=== PATIENT | male | born 1990 | race Caucasian/White ===

== ENCOUNTER 2019-10-06 22:14 | Inpatient (IN) | payer MEDICARE, MEDICAID, SELFPAY ==
[2019-10-06 22:23] VITALS: BP 154/80; PULSE 77; RESP 16; TEMP 36.7; O2SAT 98; BMI 32.5
--- NOTE | 2019-10-06 22:51 | ED_ITS ---
Entered by Shantal Rosales, acting as scribe for Peg Sutherland Oct 06, 2019 22:14 HPI - Anxiety General: Chief Complaint: Anxiety Stated Complaint: STRESSED Time Seen by Provider: 10/06/19 22:49 Source: patient and EMS Mode of arrival: EMS History of Present Illness: HPI narrative: 29 y/o male presents to the ED with complaint of anxiety and stress. Pt states he has become increasingly more uns ettled over the past 24 hours. Pt states he is suicidal but does not have a plan, at this time. Pt is willing to see the MD complaint: anxiety and other Associated symptoms: Deny chest pain, chills, confusion, diaphoresis, fever(s), headache(s), malaise, nausea, palpitations, syncope or vomiting Review of Systems General: Reports: other (negative unless marked) Const: Denies: fever, chills, body aches, fatigue, malaise or diaphoresis Eyes: Denies: change in vision or blurry vision ENMT: Denies: throat pain, painful swallowing, hoarseness, ear pain, ear discharge, Change in hearing or nasal discharge Card: Denies: chest pain, palpitations, irregular heart rhythm, syncope, pre- syncope, shortness of breath on exertion or shortness of breath when lying down Resp: Denies: shortness of breath, productive cough, non-productive cough, wheezing, coughing up blood or chest congestion GI: Denies: abdominal pain, nausea, vomiting, vomiting blood, coffee grounds in vomit, diarrhea, constipation, cramping, blood in stool or black tarry stool : Denies: flank pain, difficulty urinating, painful urination, urinary frequency, urinary urgency, decreased urine ouput, urinary incontinence or blood in urine Musc: Denies: neck pain, back pain, extremity pain, extremity swelling, joint pain, joint swelling, joint warmth or joint stiffness Skin/Breast: Denies: rash, skin tenderness or yellow skin Neuro: Denies: headache, numbness in extremities, weakness in extremities, changes in sensation, lack of coordination, difficulty walking, dizziness, vertigo or confusion Endo: Denies: excessive thirst, tired all the time, cold intolerance, excessive sweating, flushing or hot flashes Sam/Lymph: Denies: easy bruising, easy bleeding, petechiae or enlarged lymph nodes All/Imm: Denies: hives, throat swelling, tongue swelling, facial swelling or acute wheezing PFSH ED PFSH: Social History Smoking and tobacco status: never smoked Physical Exam Const: COMMON NORMALS: no apparent distress, oriented x3, no limitations, healthy appearing and well nourished EXAM LIMITATIONS: no altered mental status GENERAL APPEARANCE: cooperative, well kempt and well developed ORIENTATION/CONSCIOUSNESS: Yes awake HENMT: COMMON NORMALS: normocephalic, head/scalp atraumatic, hearing grossly normal bilaterally, external ears normal, EAC's normal, external nose normal and moist oral mucous membranes HEAD & SCALP: normal to inspection, normocephalic and atraumatic FACE & SINUS: normal facial exam and face symmetric NOSE: external nose normal and nares normal EXTERNAL EAR: Yes external ears normal EXTERNAL AUDITORY CANAL: EAC's normal MOUTH: oral and palatal mucosa normal and tongue normal Eye: COMMON NORMALS: PERRL, EOMs intact bilaterally, conjunctivae normal and no scleral icterus GENERAL EYE: normal appearance of both eyes and normal light reflex CONJUNCTIVA: Yes conjunctivae normal SCLERA: sclerae normal CORNEA: Yes corneas normal PUPIL: Yes PERRL DIRECT OPHTHALMOSCOPY: Yes normal light reflex Neck/C-Spine: COMMON NORMALS: full ROM, no lymphadenopathy, supple, no meningeal signs and no JVD GENERAL: Yes normal visual inspection and Yes trachea midline CERVICAL SPINE: Yes cervical ROM normal Chest: COMMONS NORMALS: inspection of chest normal and palpation of chest normal Resp: COMMON NORMALS: normal respiratory effort, no retractions, no use of accessory muscles and clear to auscultation bilaterally EFFORT & INSPECTION: Yes able to speak in complete sentences AUSCULTATION: clear to auscultation bilaterally Cardio: COMMON NORMALS: no JVD, regular rate, regular rhythm, S1 normal heart sound, S2 normal heart sound, no gallops, no clicks, no murmurs and no rub JUGULAR VENOUS DISTENTION: no JVD RATE: regular rate RHYTHM: regular rhythm HEART SOUNDS: S1 normal and S2 normal GI: COMMON NORMALS: soft to palpation, non-tender, no hepatosplenomegaly and no masses INSPECTION: Yes normal to inspection PALPATION: Yes soft and Yes no hepatosplenomegaly : COMMON NORMALS: Yes no CVA tenderness BLADDER/KIDNEY EXAM: Yes no CVA tenderness Back/Pelvis: COMMON NORMALS: no CVA tenderness, thoracic and lumbar spine normal to inspection, no thoracic nor lumbar tenderness and thoraco-lumbar ROM normal Extremity: COMMON NORMALS: normal to inspection, full ROM, normal capillary refill, no joint enlargement, no clubbing, cyanosis or edema and no calf tenderness Neuro: COMMON NORMALS: oriented x3, CN's II-XII intact bilaterally, moves all extremities, no focal motor deficits and no sensory deficits noted MENINGEAL SIGNS: Yes no meningeal signs Psych: COMMON NORMALS: mental status grossly normal, thought process normal, cooperative, affect normal, speech normal and activity/motor behavior normal APPEARANCE: Yes well kempt SPEECH: Yes normal speech THOUGHT PROCESS: normal thought process Skin: COMMON NORMALS: no rashes or lesions noted, skin turgor normal, no jaundice, no petechiae and no mottling GENERAL SKIN EXAM: no rashes or lesions noted and turgor normal Course Vital Signs: Vital signs: Vital Signs Temperature 98.3 F 10/07/19 01:00 Pulse Rate 83 10/07/19 01:00 Respiratory Rate 16 10/07/19 01:00 Blood Pressure 169/106 10/07/19 01:00 Pulse Oximetry 97 10/07/19 01:00 MDM - Anxiety MDM Narrative: Medical decision making narrative: The patient is claiming he does not feel safe if he goes home. I reviewed the case in full with Dr. Clark and he is agreeable to admission. Lab Data: Labs: Lab Results 10/06/19 10/06/19 10/06/19 Range/Units 23:12 23:12 23:12 WBC 13.0 H (4.0-10.0) 10^3/ uL RBC 4.85 (4.1-5.3) 10^6/u L Hgb 14.5 (11.7-16.6) g/dL Hct 44.1 (42.0-52.0) % MCV 90.9 (80-94) fL MCH 29.9 (28.0-34.0) pg MCHC 32.9 (30.0-36.0) g/dL RDW 11.5 L (12.1-15.1) % Plt Count 404 H (130-400) 10^3/c mm MPV 10.5 H (7.4-10.4) fL Neut % (Auto) 67.9 % Lymph % (Auto) 24.7 % [place] % (Auto) 6.6 % Eos % (Auto) 0.3 % Baso % (Auto) 0.3 % Neut # (Auto) 8.8 H (1.8-7.7) 10^3/u L Lymph # (Auto) 3.2 (0.8-4.8) 10^3/u L [place] # (Auto) 0.9 (0.2-0.9) 10^3/u L Eos # (Auto) 0.0 (0.0-0.8) 10^3/u L Baso # (Auto) 0.0 (0.0-0.1) 10^3/u L Nucleated RBC % (a uto) 0 % Nucleated RBCs # 0.0 /100WBC Sodium 140 (136-145) mmol/L Potassium 3.6 (3.5-5.1) mmol/L Chloride 103 (98-107) mmol/L Carbon Dioxide 24 (22-29) mmol/L Anion Gap 16.6 (5-19) BUN 16 (6-20) mg/dL Creatinine 1.1 (0.7-1.2) mg/dL GFR Calculation 80.3 L (90-130) mL/min Glucose 96 (65-115) mg/dL Calcium 9.8 (8.5-10.5) mg/dL Total Bilirubin 0.3 (0.15-1.2) mg/dL AST 39 (0-40) U/L ALT 66 H (0-41) U/L Alkaline Phosphata se 110 (40-130) IU/L Total Protein 7.8 (6.6-8.7) g/dL Albumin 4.9 (3.5-5.2) g/dL Globulin 2.9 (1.3-4.6) g/dL TSH 3.52 (0.27-4.20) uIU/ mL Salicylates < 0.3 L (3-10) mg/dL Urine Opiates Scre en (Negative) ng/mL Acetaminophen < 5.0 L (10-30) ug/mL Ur Barbiturates Sc reen (Negative) ng/mL Phenytoin 0.8 L (10-20) ug/mL Valproic Acid 2.8 L (50-100) mcg/mL Carbamazepine 2.0 L (4.0-12.0) ug/mL Ur Phencyclidine S crn (Negative) ng/mL Ur Amphetamines Sc reen (Negative) ng/mL U Benzodiazepines Scrn (Negative) ng/mL Crouse 0.1 L (0.6-1.2) mmol/L Urine Cocaine Scre en (Negative) ng/mL U Marijuana (THC) Screen (Negative) ng/mL Ethyl Alcohol < 10 (0-10) mg/dL 10/06/19 Range/Units 23:20 WBC (4.0-10.0) 10^3/ uL RBC (4.1-5.3) 10^6/u L Hgb (11.7-16.6) g/dL Hct (42.0-52.0) % MCV (80-94) fL MCH (28.0-34.0) pg MCHC (30.0-36.0) g/dL RDW (12.1-15.1) % Plt Count (130-400) 10^3/c mm MPV (7.4-10.4) fL Neut % (Auto) % Lymph % (Auto) % [place] % (Auto) % Eos % (Auto) % Baso % (Auto) % Neut # (Auto) (1.8-7.7) 10^3/u L Lymph # (Auto) (0.8-4.8) 10^3/u L [place] # (Auto) (0.2-0.9) 10^3/u L Eos # (Auto) (0.0-0.8) 10^3/u L Baso # (Auto) (0.0-0.1) 10^3/u L Nucleated RBC % (a uto) % Nucleated RBCs # /100WBC Sodium (136-145) mmol/L Potassium (3.5-5.1) mmol/L Chloride (98-107) mmol/L Carbon Dioxide (22-29) mmol/L Anion Gap (5-19) BUN (6-20) mg/dL Creatinine (0.7-1.2) mg/dL GFR Calculation (90-130) mL/min Glucose (65-115) mg/dL Calcium (8.5-10.5) mg/dL Total Bilirubin (0.15-1.2) mg/dL AST (0-40) U/L ALT (0-41) U/L Alkaline Phosphata se (40-130) IU/L Total Protein (6.6-8.7) g/dL Albumin (3.5-5.2) g/dL Globulin (1.3-4.6) g/dL TSH (0.27-4.20) uIU/ mL Salicylates (3-10) mg/dL Urine Opiates Scre en Negative (Negative) ng/mL Acetaminophen (10-30) ug/mL Ur Barbiturates Sc reen Negative (Negative) ng/mL Phenytoin (10-20) ug/mL Valproic Acid (50-100) mcg/mL Carbamazepine (4.0-12.0) ug/mL Ur Phencyclidine S crn Negative (Negative) ng/mL Ur Amphetamines Sc reen Negative (Negative) ng/mL U Benzodiazepines Scrn Negative (Negative) ng/mL Crouse (0.6-1.2) mmol/L Urine Cocaine Scre en Negative (Negative) ng/mL U Marijuana (THC) Screen Negative (Negative) ng/mL Ethyl Alcohol (0-10) mg/dL Discharge Plan Discharge Patient Disposition: Admitted As Inpatient Admit Provider: Timoteo Clark Clinical Impression: Suicidal ideations, Acute anxiety Condition: Stable Interventions: ED Discharge Assessment Last Done: 10/07/19 01:01 Discharge Date/Time: 10/07/19 01:01 Coding Level of Care Code ED Dtp Operator for g Fwd Exam Comprehensive The documentation recorded by the Bobby cohn Ashley, accurately reflects the service I personally performed and the decisions made by Koko rose Eli N Oct 06, 2019 22:14
[2019-10-06 23:17] LABS: Basophils % 0.3 %; Eosinophils % 0.3 %; Hematocrit 44.1 % (42.0-52.0); Hemoglobin 14.5 g/dL (11.7-16.6); Lymphocytes # 3.2 10^3/uL (0.8-4.8); Lymphocytes % 24.7 %; Mean Corpuscular HGB Conc 32.9 g/dL (30.0-36.0); Mean Corpuscular Hemoglobin 29.9 pg (28.0-34.0); Mean Corpuscular Volume 90.9 fL (80-94); Mean Platelet Volume 10.5 fL (7.4-10.4); Monocytes # 0.9 10^3/uL (0.2-0.9); Monocytes % 6.6 %; Neutrophils # 8.8 10^3/uL (1.8-7.7); Neutrophils % 67.9 %; Nucleated Red Blood Cells % 0 %; Platelet Count 404 10^3/cmm (130-400); Red Blood Count 4.85 10^6/uL (4.1-5.3); Red Cell Distribution Width 11.5 % (12.1-15.1)
[2019-10-06 23:40] LABS: Alanine Aminotransferase 66 U/L (0-41); Albumin Level 4.9 g/dL (3.5-5.2); Alkaline Phosphatase 110 IU/L (40-130); Anion Gap 16.6 (5-19); Aspartate Amino Transferase 39 U/L (0-40); Blood Urea Nitrogen 16 mg/dL (6-20); Calcium 9.8 mg/dL (8.5-10.5); Carbon Dioxide 24 mmol/L (22-29); Chloride 103 mmol/L (98-107); Globulin 2.9 g/dL (1.3-4.6); Glomerular Filtration Rate 80.3 mL/min (90-130); Glucose 96 mg/dL (65-115); Phenytoin Dilantin 0.8 ug/mL (10-20); Potassium 3.6 mmol/L (3.5-5.1); Sodium 140 mmol/L (136-145); Thyroid Stimulating Hormone 3.52 uIU/mL (0.27-4.20); Total Bilirubin 0.3 mg/dL (0.15-1.2); Total Protein 7.8 g/dL (6.6-8.7); Valproic Acid Level 2.8 mcg/mL (50-100)
[2019-10-06 23:48] LABS: Lithium 0.1 mmol/L (0.6-1.2)
[2019-10-06 23:57] LABS: Acetaminophen < 5.0 ug/mL (10-30); Alcohol Level < 10 mg/dL (0-10); Salicylate < 0.3 mg/dL (3-10)
[2019-10-07 00:59] LABS: Amphetamines Screen Urine Negative (Negative); Barbiturates Screen Urine Negative (Negative); Benzodiazepines Screen Urine Negative (Negative); Cocaine Screen Urine Negative (Negative); Opiate Screen Urine Negative (Negative); PCP Screen Urine Negative (Negative); THC Screen Urine Negative (Negative)
[2019-10-07 01:00] VITALS: BP 169/106; PULSE 83; RESP 16; TEMP 36.8; O2SAT 97
[2019-10-07] MEDS: hyDROXYzine 25 mg Capsule 50 MG PO ×2 (01:36→17:03)
[2019-10-07 06:00] VITALS: BP 134/83; PULSE 55; RESP 20; TEMP 36.4; O2SAT 99
[2019-10-07] MEDS: citalopram 20 mg Tablet PO (12:55)
[2019-10-07] MEDS: atenolol 50 mg Tablet 25 MG PO (12:56)
[2019-10-07 14:00] VITALS: BP 137/85; PULSE 69; RESP 20; TEMP 36.3; O2SAT 97
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
--- NOTE | 2019-10-07 17:03 | PC.NURSE ---
Addendum entered by Bernarda Sanches LPN 10/07/19 18:15: MEDICATION EFFECTIVE. NO FURTHER C/O ANXIETY. Original Note: PRN VISTARIL VISTARIL 50MG PO PER PATIENT C/O ANXIETY. WILL CONTINUE TO MONITOR FOR MEDICATION EFFECTIVENESS.
[2019-10-07 21:42] VITALS: BP 131/81; PULSE 76; RESP 18; TEMP 36.9; O2SAT 96
[2019-10-08 06:00] VITALS: BP 122/74; PULSE 64; RESP 17; TEMP 36.8; O2SAT 98
[2019-10-08] MEDS: citalopram 20 mg Tablet PO (08:16)
[2019-10-08] MEDS: atenolol 50 mg Tablet 25 MG PO (08:16)
--- NOTE | 2019-10-08 12:58 | P.PN_ITS ---
Subjective NPU Subjective: Interval history: feeling much better since I started a new medication. Mental Status Exam MSE Comments: Mental Status Exam: Patient is a large male appearing approximately his stated age. Visually, he is striking in that he is constantly rocking back and forth either left and right or forward and back. He is also noted to be walking constantly in the hallways. He walks on his toes. There is no attention to internal stimuli. He is believed to be a reliable informant for the best of his ability as information provided is internally consistent and consistent with that in the chart. Appearance: hygiene is Malodorous; AIMS Is positive for swaying from the trunk constantly. However he has no fine tremors or peripheral tremors. He has no cogwheel rigidity. He has no perioral tremors. Speech: Speech is of normal rate and rhythm and easily understood. Thought processes: Thought processes are [place]. Judgment is adequate for safety. Associations: intact Psychotic processes: There is no indication of guarding or paranoia. There is no attention to the internal stimuli. Auditory and visual hallucinations are denied. Judgment: Insight is fair. Problem solving skills are adequate for safety. Orientation: The patient is oriented to person, place time and situation. Memory: no deficits noted in immediate, intermediate, or remote spheres. Attention: The patient is alert and interpersonally engaged. Language: Verbalizations are coherent. Fund of knowledge: Fund of knowledge is Fair Affect/Mood: Affect is consistent with a Mildly depressed mood. He denied suicidal ideation Affective range appropriate. Psychosis: perception unimpaired except through cognitive distortion And cognitive deficit; reality testing intact. Vitals/I&O/Wt Last Vital Signs Temp 98.2 F 10/08/19 06:00 Pulse 64 10/08/19 06:00 Resp 17 10/08/19 06:00 BP 122/74 10/08/19 06:00 Pulse Ox 98 10/08/19 06:00 Weight last 48 hrs Weight 117.934 kg Data NPU : 10/06/19 23:12 10/06/19 23:12 A&P Additional A&P Information Diagnoses: Major depression?single episode, moderate severity Intermittent explosive disorder Borderline Intellectual function Assessment:This is a difficult assessment without historian 8. He clearly has been involved in outpatient mental health care and receives counseling on a regular basis. He verbalizes freely the concept and use of coping skills and his understanding of mental health terms of issues is actually quite good. It is likely that the psychosocial stressors in his life have combined to force in the face of the fact that he will lose his lifelong dream resulting in suffering from symptoms of clinical depression. Will treat with medication may be helpful, ongoing treatment in talking therapy will be very useful in es tablishing an alternative life plan which seems much more promising. For instance, when asked in what activities did he have competence, the only one that could come up with was wrestling. He did not recognize that in fact he is likely quite a good caregiver or he would not be placed in the accompaniment of these older people through most of his life and thrive doing so. Initiation of antidepressant likely bring some benefit but be unlikely necessary in the long- term. More perplexing, is the appearance is that he has akathisia which might be secondary to his Invega Sustenna injection. He does agree that it is likely that he could do well with a much lower dose. However that cannot be affected at this time. We may try some interval efforts to reduce that level of irritabilityAnd also to improve his sleep. hospital day #2: Patient has tolerated the initiation of atenolol 25 mg daily and Celexa 20 mg daily. He reports significant benefit we discussed the time course of expected benefits for medications having a range of weeks rather than ours. He feels like he is ready to go home. Plan: We'll plan on discharging him tomorrow if he is able to associate reasonable discharge planning and he remains free of side effects with significant benefit medications. He does not appear to be an imminent risk to self or others at this time. Involuntary Hold Information 96 Hour Hold: 96 Hour Involuntary Admission: No Attestations NPU Medical Necessity Statement*: patient remained in the hospital another one tonight to establish efficacy and tolerability medication interventions. Coding Level of Care Code Acute [facility] for Sue Gross
[2019-10-08 14:00] VITALS: BP 134/77; PULSE 77; RESP 20; TEMP 36.9; O2SAT 95
[2019-10-08] MEDS: trazodone 100 mg Tablet PO (20:17)
[2019-10-08 21:46] VITALS: BP 146/80; PULSE 75; RESP 23; TEMP 36.8; O2SAT 97
[2019-10-09 06:00] VITALS: BP 142/69; PULSE 60; RESP 18; TEMP 36.7; O2SAT 99
[2019-10-09] MEDS: atenolol 50 mg Tablet 25 MG PO (08:02)
[2019-10-09] MEDS: citalopram 20 mg Tablet PO (08:02)
--- NOTE | 2019-10-09 08:08 | PM.NDC ---
Diagnoses at Discharge Discharge Diagnosis (1) Major depression single episode, in partial remission: Status: Acute Reason for Visit Reason for Visit: Reason For Visit: STRESSED Brief History: Chief complaint: By psychiatrist thinks my Invega Sustenna dosage might be a little high. There is a lot going on at home that is unsettling. It usually keeps the call time. 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 I'm a lot higher functioning than that. He presented in the emergency room complaining that he has been increasingly irritable, Shellie, feeling sad and hopeless and overwhelmed. His previous coping skills have not been working as well. He thinks that he might be depressed. 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 When asked if he had an alternative plan of things that he continue with the rest of his life, he said that he would like to become a product manufacturing professional touring with his uncle. He reports irritability and sometimes feeling as though he is going to lose his temper. I might have insomnia. There is no history of manic symptoms or episodes. His urine drug screen is negative and he denies use of illicit substances including that of testosterone or growth hormone derivatives that would provide bulk to become a product manufacturing professional. He denied suicidal or homicidal ideation. He denied the presence of auditory or visual hallucinations. In fact there is no history anywhere in his chart of auditory or visual hallucinations or other symptoms of schizophrenia. What he does have is a long history detailed by both the patient in the chart of having an explosive temper when he is overwhelmed by strong emotion.The patient is highly invested in his Invega Sustenna and says that it is the one medication that has helped him maintain his calm demeanor and keep his temper under control. He denies side effects to medication. He says that his pattern of pacing back and forth and rocking back and forth in his chair is a family trait and has been a lifelong pattern for him and is not considered akathisia. Past mental health history diadnosis AXIS I: Intermittent explosive disorder. AXIS II: Borderline mental retardation. (I don?t think that?s right. I?m pretty high functioning) AXIS III: No evidence of disorder. Hospital Course Discharge Summary Diagnoses: Major depression?single episode, moderate severity Intermittent explosive disorder Borderline Intellectual function Assessment:This is a difficult assessment without historian 8. He clearly has been involved in outpatient mental health care and receives counseling on a regular basis. He verbalizes freely the concept and use of coping skills and his understanding of mental health terms of issues is actually quite good. It is likely that the psychosocial stressors in his life have combined to force in the face of the fact that he will lose his lifelong dream resulting in suffering from symptoms of clinical depression. Will treat with medication may be helpful, ongoing treatment in talking therapy will be very useful in establishing an alternative life plan which seems much more promising. For instance, when asked in what activities did he have competence, the only one that could come up with was wrestling. He did not recognize that in fact he is likely quite a good caregiver or he would not be placed in the accompaniment of these older people through most of his life and thrive doing so. Initiation of antidepressant likely bring some benefit but be unlikely necessary in the long-term. More perplexing, is the appearance is that he has akathisia which might be secondary to his Invega Sustenna injection. He does agree that it is likely that he could do well with a much lower dose. However that cannot be affected at this time. We may try some interval efforts to reduce that level of irritabilityAnd also to improve his sleep. He does not appear to be an imminent risk to self or others at this time. Treatment plan: Due to the psychiatric conditions and treatment listed in the Assessment and Plan - the patient requires continued hospitalization. Will provide a safe and therapeutic environment for patient.. Will continue inpatient treatment to allow for medication adjustment and monitoring. Will continue q15 min safety checks. Will continue current medications and monitor for medication side effects. Continue Invega Sustenna 234 mg IM with next injection due on 10/20/2019. Start Celexa 10 mg daily targeting symptoms of depression and anxiety. Initiate atenolol 25 mg daily targeting possible akathisia and general anxiety and irritability given that he is in a strange environment. Initiate trazodone 100 mg When necessary insomnia at bedtime . hospital day #2: Patient has tolerated the initiation of atenolol 25 mg daily and Celexa 20 mg daily. He reports significant benefit we discussed the time course of expected benefits for medications having a range of weeks rather than ours. He feels like he is ready to go home. Plan: We'll plan on discharging him tomorrow if he is able to associate reasonable discharge planning and he remains free of side effects with significant benefit medications. He does not appear to be an imminent risk to self or others at this time. Involuntary Hold Information 96 Hour Hold: 96 Hour Involuntary Admission: No Mental Status Exam MSE Comments: Mental Status Exam: Patient is a large male appearing approximately his stated age. Visually, he is striking in that he is constantly rocking back and forth either left and right or forward and back. He is also noted to be walking constantly in the hallways. He walks on his toes. There is no attention to internal stimuli. He is believed to be a reliable informant for the best of his ability as information provided is internally consistent and consistent with that in the chart. Appearance: hygiene is fair; AIMS Is positive for swaying from the trunk constantly. However he has no fine tremors or peripheral tremors. He has no cogwheel rigidity. He has no perioral tremors. Speech: Speech is of normal rate and rhythm and easily understood. Thought processes: Thought processes are [place]. Judgment is adequate for safety. Associations: intact Psychotic processes: There is no indication of guarding or paranoia. There is no attention to the internal stimuli. Auditory and visual hallucinations are denied. Judgment: Insight is fair. Problem solving skills are adequate for safety. Orientation: The patient is oriented to person, place time and situation. Memory: no deficits noted in immediate, intermediate, or remote spheres. Attention: The patient is alert and interpersonally engaged. Language: Verbalizations are coherent. Fund of knowledge: Fund of knowledge is Fair Affect/Mood: Affect is consistent with euthymic mood. He denied suicidal ideation Affective range appropriate. Psychosis: perception unimpaired except through cognitive distortion And cognitive deficit; reality testing intact. Discharge Data Vitals: Last Vital Signs Temp 98.0 F 10/09/19 06:00 Pulse 60 10/09/19 06:00 Resp 18 10/09/19 06:00 BP 142/69 10/09/19 06:00 Pulse Ox 99 10/09/19 06:00 Discharge Plan Discharge Patient Disposition: Home, Self-Care Condition: Stable Prescriptions: New citalopram 20 mg Tablet 20 mg PO DAILY Qty: 30 RF: 5 trazodone 100 mg Tablet 100 mg PO BEDTIME PRN (Reason: Insomnia) Qty: 15 RF: 5 atenolol 50 mg Tablet 25 mg PO DAILY Qty: 30 RF: 5 Changed Invega Sustenna 234 mg/1.5 mL Syringe 234 mg IM Q30D PRN (Reason: next due 10/27/2019) Qty: 1 RF: 4 Discharge Orders: Discharge Order (Routine); Ordered 10/09/19 Ordered By: Osmar Bradford Referrals: [facility] [Other] - 11/03/19 3:15 pm (Psychiatric Assessment scheduled with SITE AUDITOR Sierra Gamble.) [facility] [Other[facility] - 10/26/19 11:00 am (Follow up with Renetta Padilla for monthly Invega Sustenna injection. Please pick medication up at the pharmacy and bring with you to your appointment.) Discharge Attestations NPU Time Spent in Discharge Care*: greater than 30 min Coding Level of Care Code Acute Protective Signal Operations Supervisor for Sue Gross Diagnoses Major depression single episode, in partial remission F32.4
[2019-10-09 08:09] VITALS: BP 142/69; PULSE 60; RESP 18; TEMP 36.7; O2SAT 99
== END 2019-10-09 09:23 | disposition home or self-care (01) | DRG 885 ==
LOC: ER 22:56 → NP 10-07 00:30
PROVIDERS: Admitting Provider Psychiatry & Neurology Psychiatry; Emergency Provider Emergency Medicine; Family Provider Nurse Practitioner Family; PCP Nurse Practitioner Family; Visit Provider Psychiatry & Neurology Psychiatry
DX: F32.4 Major depressive disorder, single episode, in partial remission (principal); F63.81 Intermittent explosive disorder; R41.83 Borderline intellectual functioning
CPT/HCPCS: 12345; 36415; 80053; 80156; 80164; 80178; 80185; 80307; 84443; 85025; 99281